=== PATIENT | male | born 1970 | race Two or more races ===

== ENCOUNTER 2020-10-07 01:40 | Emergency (ER) | payer OTHER ==
[~2020-10-07] VITALS: Ht 180.3 cm; Wt 86.2 kg
[2020-10-07] MEDS ORDERED: INTESTINEX680 M1 PO (07:54)
[2020-10-07] MEDS ORDERED: IMODIUM A-D2 M2 PO (07:54)
== END 2020-10-07 08:48 ==
LOC: ER 01:40
DX: K52.89 Other specified noninfective gastroenteritis and colitis (principal); R19.7 Diarrhea, unspecified; R10.9 Unspecified abdominal pain